=== PATIENT | male | born 1955 | race Caucasian/White ===

== ENCOUNTER 2020-07-12 14:16 | Inpatient (IN) | payer BC ==
[2020-07-12 15:07] LABS: #Basophils 0.1 10x3/uL (0.0-0.2); #Eosinphils 0.1 10x3/uL (0.0-0.5); #Monocytes 1.8 10x3/uL (0.0-1.1); #Neutrophils 11.7 10x3/uL (1.5-8.4); %Basophils 0.5 % (0.0-2.0); %Eosinophils 0.3 % (0.0-6.0); %Lymphocytes 12.3 % (18.0-47.0); %Monocytes 11.3 % (0.0-10.0); Hemoglobin 13.4 g/dL (13.5-17.5); Mean Corpuscular Volume 84.3 fl (81.2-95.1); Mean Platelet Volume 9.3 fl (7.4-10.4); Platelet Count 301 10x3/uL (150-450); RBC Distribution Width 15.7 % (11.5-14.5); Red Blood Cell (RBC) Count 4.97 10x6/uL (4.32-5.72); White Blood Cell (WBC) Count 15.6 10x3/uL (3.5-10.5)
[2020-07-12] MEDS ORDERED: Cefepime 2 GM VIAL ONE (15:12)
[2020-07-12 15:25] LABS: ALT (SGPT) 18 U/L (8-55); AST (SGOT) 18 U/L (5-34); Albumin 3.6 g/dL (3.4-4.8); Alkaline Phosphatase 94 U/L (40-110); Anion Gap 16 mmol/L (10-20); BUN (Urea Nitrogen) 10 mg/dL (8.4-25.7); Bilirubin, Total 0.3 mg/dL (0.2-1.2); CRP (Inflammatory) 20.15 mg/dL (= or < 0.5); Calc. Creatinine Clearance 0 mL/min (70-130); Calcium 9.1 mg/dL (7.8-10.44); Carbon Dioxide 26 mmol/L (23-31); Chloride 97 mmol/L (98-107); Globulin 3.6 g/dL (2.4-3.5); Glucose 129 mg/dL (80-115); Potassium 3.7 mmol/L (3.5-5.1); Protein, Total 7.2 g/dL (5.8-8.1); Sodium 135 mmol/L (136-145)
[2020-07-12] MEDS ORDERED: Morphine 4 MG/ML VIAL ONE (15:34)
[2020-07-12] MEDS ORDERED: Ondansetron PF 4 MG/2 ML Vial ONE (15:35)
[2020-07-12] MEDS ORDERED: Acetaminophen 650 MG Suppository PR PRN (16:35)
[2020-07-12] MEDS ORDERED: Acetaminophen 325 MG TAB PO PRN (16:35)
[2020-07-12] MEDS ORDERED: Ondansetron ODT 4 MG TAB PO PRN (16:35)
[2020-07-12] MEDS ORDERED: Ondansetron PF 4 MG/2 ML Vial IVP PRN (16:35)
[2020-07-12] MEDS ORDERED: Dextrose 50% Abboject 50 ML SYRINGE SLOW IVP PRN (16:37)
[2020-07-12] MEDS ORDERED: Insulin Regular 300 UNITS/3 ML VIAL SC PRN ×2 (16:37)
[2020-07-12] MEDS ORDERED: Dextrose 5% in Water 1,000 ML IV PRN (16:37)
[2020-07-12] MEDS ORDERED: Vancomycin 1 GM in Premix Bag 1 BAG IVPB SCH (16:45)
[2020-07-12 19:10] VITALS: BMI 28.8
[2020-07-12] MEDS ORDERED: HYDROcodone/Acetaminophen 5/325 mg Tablet PO PRN (22:19)
[2020-07-12] MEDS ORDERED: Famotidine 20 MG TAB PO SCH (23:00)
[2020-07-12] MEDS: Vancomycin HCl 1 GM in Sodium Chloride 0.9% 250 ML 250 ML IVPB SCH (23:05)
[2020-07-12] MEDS: HYDROcodone/Acetaminophen 10/325 mg Tablet PO PRN (23:06)
[2020-07-13] MEDS: Vancomycin HCl 750 MG in Sodium Chloride 0.9% 250 ML 250 ML IVPB SCH ×2 (00:20→11:01)
[2020-07-13] MEDS: Ipratropium Bromide 2.5 ml Neb NEB SCH ×4 (00:38→20:23)
[2020-07-13] MEDS: Cefepime 2 GM in Sodium Chloride 0.9% 100 ML IVPB SCH ×2 (03:49→14:43)
[2020-07-13 04:28] LABS: #Basophils 0.1 10x3/uL (0.0-0.2); #Eosinphils 0.2 10x3/uL (0.0-0.5); #Monocytes 1.4 10x3/uL (0.0-1.1); #Neutrophils 7.7 10x3/uL (1.5-8.4); %Basophils 0.6 % (0.0-2.0); %Eosinophils 1.8 % (0.0-6.0); %Lymphocytes 17.1 % (18.0-47.0); %Monocytes 12.5 % (0.0-10.0); %Neutrophils 67.7 % (40.0-75.0); Hemoglobin 13.2 g/dL (13.5-17.5); Mean Corpuscular HGB CONC 30.8 g/dL (32.0-36.0); Mean Corpuscular Hemoglobin 26.8 pg (27.0-33.0); Mean Platelet Volume 9.3 fl (7.4-10.4); Platelet Count 290 10x3/uL (150-450); RBC Distribution Width 15.7 % (11.5-14.5); Red Blood Cell (RBC) Count 4.93 10x6/uL (4.32-5.72); White Blood Cell (WBC) Count 11.4 10x3/uL (3.5-10.5)
[2020-07-13 04:43] LABS: Anion Gap 14 mmol/L (10-20); BUN (Urea Nitrogen) 8 mg/dL (8.4-25.7); Calc. Creatinine Clearance 130 mL/min (70-130); Carbon Dioxide 30 mmol/L (23-31); Chloride 100 mmol/L (98-107); Glucose 90 mg/dL (80-115); Potassium 4.1 mmol/L (3.5-5.1); Sodium 140 mmol/L (136-145)
[2020-07-13] MEDS: HYDROcodone/Acetaminophen 10/325 mg Tablet PO PRN (06:31)
[2020-07-13] MEDS: Losartan Potassium 50 MG TAB PO SCH (09:01)
[2020-07-13] MEDS: Multivit, Therapeutic 1 TAB PO SCH (09:02)
[2020-07-13] MEDS: metFORMIN 850 MG TAB PO SCH ×2 (09:02→18:16)
[2020-07-13] MEDS: Empagliflozin 10 MG TAB PO SCH (09:02)
[2020-07-13] MEDS: Vancomycin HCl 1 GM in Sodium Chloride 0.9% 250 ML 250 ML IVPB SCH (09:03)
[2020-07-13] MEDS: Ferrous Sulfate 325 MG TAB PO SCH (09:18)
[2020-07-13 10:30] LABS: SARS-CoV-2 NAA Rapid Test Not Detected (NotDetected)
[2020-07-13] MEDS: Mometasone/Formoterol 60 PUFF AER INH SCH (11:24)
[2020-07-13] MEDS: HYDROcodone/Acetaminophen 5/325 mg Tablet PO PRN ×2 (11:48→18:15)
[2020-07-13] MEDS: clonazePAM 1 MG TAB PO SCH (21:42)
[2020-07-13] MEDS: Gabapentin 300 MG CAP PO SCH (21:42)
[2020-07-13] MEDS: Atorvastatin Calcium 20 MG TAB PO SCH (21:42)
[2020-07-13] MEDS: Famotidine 20 MG TAB PO SCH (21:42)
[2020-07-13] MEDS: Vancomycin 1.5 GRAM/300 ML BAG 1.5 GM in Premix Bag 1 BAG IVPB SCH (21:48)
[2020-07-14] MEDS: Cefepime 2 GM in Sodium Chloride 0.9% 100 ML IVPB SCH ×2 (03:08→15:49)
[2020-07-14] MEDS: Ipratropium Bromide 2.5 ml Neb NEB SCH ×4 (03:26→19:30)
[2020-07-14] MEDS: Vancomycin 1.5 GRAM/300 ML BAG 1.5 GM in Premix Bag 1 BAG IVPB SCH ×3 (05:34→22:09)
[2020-07-14 05:59] LABS: #Basophils 0.1 10x3/uL (0.0-0.2); #Eosinphils 0.3 10x3/uL (0.0-0.5); #Monocytes 1.1 10x3/uL (0.0-1.1); #Neutrophils 5.1 10x3/uL (1.5-8.4); %Basophils 1.1 % (0.0-2.0); %Eosinophils 3.8 % (0.0-6.0); %Lymphocytes 21.7 % (18.0-47.0); %Monocytes 12.5 % (0.0-10.0); %Neutrophils 60.2 % (40.0-75.0); Hemoglobin 12.3 g/dL (13.5-17.5); Mean Corpuscular HGB CONC 31.5 g/dL (32.0-36.0); Mean Corpuscular Hemoglobin 26.9 pg (27.0-33.0); Mean Corpuscular Volume 85.2 fl (81.2-95.1); Mean Platelet Volume 9.1 fl (7.4-10.4); Platelet Count 276 10x3/uL (150-450); RBC Distribution Width 15.8 % (11.5-14.5); Red Blood Cell (RBC) Count 4.58 10x6/uL (4.32-5.72); White Blood Cell (WBC) Count 8.4 10x3/uL (3.5-10.5)
[2020-07-14 06:04] LABS: Anion Gap 12 mmol/L (10-20); BUN (Urea Nitrogen) 8 mg/dL (8.4-25.7); CRP (Inflammatory) 10.49 mg/dL (= or < 0.5); Calc. Creatinine Clearance 135 mL/min (70-130); Calcium 8.5 mg/dL (7.8-10.44); Carbon Dioxide 28 mmol/L (23-31); Chloride 103 mmol/L (98-107); Glucose 106 mg/dL (80-115); Potassium 3.5 mmol/L (3.5-5.1); Sodium 139 mmol/L (136-145)
[2020-07-14] MEDS: Mometasone/Formoterol 60 PUFF AER INH SCH (07:35)
[2020-07-14] MEDS: Empagliflozin 10 MG TAB PO SCH (08:49)
[2020-07-14] MEDS: Ferrous Sulfate 325 MG TAB PO SCH (08:50)
[2020-07-14] MEDS: Losartan Potassium 50 MG TAB PO SCH (08:50)
[2020-07-14] MEDS: metFORMIN 850 MG TAB PO SCH ×2 (08:50→17:58)
[2020-07-14] MEDS: Multivit, Therapeutic 1 TAB PO SCH (08:50)
[2020-07-14 20:42] LABS: Vancomycin, Trough 26.9 ug/mL
[2020-07-14] MEDS: clonazePAM 1 MG TAB PO SCH (22:08)
[2020-07-14] MEDS: Famotidine 20 MG TAB PO SCH (22:08)
[2020-07-14] MEDS: Atorvastatin Calcium 20 MG TAB PO SCH (22:09)
[2020-07-14] MEDS: Gabapentin 300 MG CAP PO SCH (22:11)
[2020-07-14] MEDS: HYDROcodone/Acetaminophen 5/325 mg Tablet PO PRN (22:25)
[2020-07-15] MEDS: Cefepime 2 GM in Sodium Chloride 0.9% 100 ML IVPB SCH ×2 (02:43→16:45)
[2020-07-15] MEDS: Ipratropium Bromide 2.5 ml Neb NEB SCH ×3 (03:18→13:44)
[2020-07-15] MEDS: Vancomycin 1.5 GRAM/300 ML BAG 1.5 GM in Premix Bag 1 BAG IVPB SCH ×2 (05:09→14:07)
[2020-07-15] MEDS: Mometasone/Formoterol 60 PUFF AER INH SCH (07:09)
[2020-07-15] MEDS: Multivit, Therapeutic 1 TAB PO SCH (08:52)
[2020-07-15] MEDS: Ferrous Sulfate 325 MG TAB PO SCH (08:52)
[2020-07-15] MEDS: Empagliflozin 10 MG TAB PO SCH (08:52)
[2020-07-15] MEDS: Losartan Potassium 50 MG TAB PO SCH (08:52)
[2020-07-15] MEDS: metFORMIN 850 MG TAB PO SCH ×2 (08:52→17:49)
[2020-07-15] MEDS: HYDROcodone/Acetaminophen 5/325 mg Tablet PO PRN ×2 (18:40→22:42)
[2020-07-15] MEDS: Atorvastatin Calcium 20 MG TAB PO SCH (21:39)
[2020-07-15] MEDS: Gabapentin 300 MG CAP PO SCH (21:39)
[2020-07-15] MEDS: clonazePAM 1 MG TAB PO SCH (21:40)
[2020-07-15] MEDS: Famotidine 20 MG TAB PO SCH (21:40)
[2020-07-16 01:28] LABS: Vancomycin, Random 25.6 ug/mL (See Comment)
[2020-07-16] MEDS ORDERED: Vancomycin HCl 1 GM in Sodium Chloride 0.9% 250 ML 250 ML IVPB SCH ×2 (02:00→10:00)
[2020-07-16] MEDS: Ipratropium Bromide 2.5 ml Neb NEB SCH ×3 (02:18→14:40)
[2020-07-16] MEDS: Cefepime 2 GM in Sodium Chloride 0.9% 100 ML IVPB SCH ×2 (03:41→16:15)
[2020-07-16 06:19] LABS: PTT 27.4 sec (22.0-33.0); Prothrombin Time 11.2 sec (9.5-12.1)
[2020-07-16] MEDS: Mometasone/Formoterol 60 PUFF AER INH SCH (07:08)
[2020-07-16] MEDS ORDERED: Lidocaine 1% PF 5 ML VIAL ONE (08:44)
[2020-07-16] MEDS ORDERED: Sodium Bicarbonate 2.5 MEQ/5 ML VIAL ONE (08:45)
[2020-07-16] MEDS ORDERED: Enoxaparin Sodium 40 MG/0.4 ML SYRINGE SC SCH (09:00)
[2020-07-16] MEDS: Empagliflozin 10 MG TAB PO SCH (11:28)
[2020-07-16] MEDS: Multivit, Therapeutic 1 TAB PO SCH (11:28)
[2020-07-16] MEDS: Ferrous Sulfate 325 MG TAB PO SCH (11:29)
[2020-07-16] MEDS: Losartan Potassium 50 MG TAB PO SCH (11:29)
[2020-07-16] MEDS: metFORMIN 850 MG TAB PO SCH (11:29)
[2020-07-16] MEDS: HYDROcodone/Acetaminophen 5/325 mg Tablet PO PRN (11:29)
[2020-07-16] MEDS ORDERED: DAPTOmycin 800 MG in Sodium Chloride 0.9% 16 ML SLOW IVP SCH (15:30)
[2020-07-16 15:33] VITALS: BP 146/79; TEMP 98.9
[2020-07-23 08:28] LABS: Ref Lab Test Ordered AEROBIC SUSCEPT; Reference Lab Name LABCORP
== END 2020-07-16 17:12 | disposition home or self-care (01) | DRG 854 ==
LOC: CSHERS 14:16 → CSHTELE 18:15
PROVIDERS: ADMIT Internal Medicine; ATTEND Internal Medicine
PROC: 0MC Bursae and Ligaments, Extirpation (ICD-10-PCS; principal; 2020-07-13)
PROC: 02HV33Z Insertion of Infusion Device into Superior Vena Cava, Percutaneous Approach (ICD-10-PCS; 2020-07-15)
PROC: B548ZZA Ultrasonography of Superior Vena Cava, Guidance (ICD-10-PCS; 2020-07-15)
DX: A41.9 Sepsis, unspecified organism (principal); M86.18 Other acute osteomyelitis, other site; Z20.822 Contact with and (suspected) exposure to COVID-19; I10 Essential (primary) hypertension; E11.69 Type 2 diabetes mellitus with other specified complication; E78.5 Hyperlipidemia, unspecified; M71.122 Other infective bursitis, left elbow; S50.352A Superficial foreign body of left elbow, initial encounter; B95.61 Methicillin susceptible Staphylococcus aureus infection as the cause of diseases classified elsewhere; E66.9 Obesity, unspecified; Z68.28 Body mass index [BMI] 28.0-28.9, adult; Z90.3 Acquired absence of stomach [part of]; Z79.84 Long term (current) use of oral hypoglycemic drugs; Z90.89 Acquired absence of other organs; Z90.49 Acquired absence of other specified parts of digestive tract; Z79.899 Other long term (current) drug therapy
CPT/HCPCS: 36415; 36416; 36568; 78315; 80048; 80053; 80202; 82550; 82565; 83605; 84520; 85025; 85610; 85652; 85730; 86140; 87040; 87070; 87077; 87205; 87635; 94640; 94664; 94760; 96365; 96367; 96375; A9503; J0692; J0878; J1650; J2270; J2405; J3370; J3490; J7050; Q0162; U0002; U0003; U0005

== ENCOUNTER 2021-11-09 20:28 | Inpatient (IN) | payer BC ==
[2021-11-09 21:48] LABS: Hemoglobin 13.1 g/dL (13.5-17.5); Mean Corpuscular HGB CONC 32.8 g/dL (32.0-36.0); Mean Corpuscular Hemoglobin 26.4 pg (27.0-33.0); Mean Corpuscular Volume 80.5 fl (81.2-95.1); Platelet Count 296 10x3/uL (150-450); RBC Distribution Width 18.2 % (11.5-14.5); Red Blood Cell (RBC) Count 4.97 10x6/uL (4.32-5.72); White Blood Cell (WBC) Count 45.3 10x3/uL (3.5-10.5)
[2021-11-09 21:49] LABS: MDiff Complete? YES; Platelet Morphology Comment Appears Adequate
[2021-11-09 21:53] LABS: Reflex for Review?? YES
[2021-11-09 22:02] LABS: ALT (SGPT) 21 U/L (8-55); AST (SGOT) 13 U/L (5-34); Albumin 3.4 g/dL (3.4-4.8); Alkaline Phosphatase 77 U/L (40-110); Anion Gap 16 mmol/L (10-20); BUN (Urea Nitrogen) 18 mg/dL (8.4-25.7); Bilirubin, Total 0.7 mg/dL (0.2-1.2); Calc. Creatinine Clearance 0 mL/min (70-130); Calcium 8.8 mg/dL (7.8-10.44); Carbon Dioxide 25 mmol/L (23-31); Chloride 99 mmol/L (98-107); Estimated GFR 69; Globulin 3.1 g/dL (2.4-3.5); Glucose 211 mg/dL (80-115); Protein, Total 6.5 g/dL (5.8-8.1); Sodium 136 mmol/L (136-145)
[2021-11-09 22:16] LABS: Bilirubin Neg (Negative); Blood, Urine 150 (Negative); Glucose, Urine (Dipstick) >=1000 mg/dL (Negative); Ketone, Urine Negative (Negative); Leukocyte 500 (Negative); Nitrite Positive (Negative); Protein, Urine (Dipstick) 30 mg/dl (Neg-Trace); Specific Gravity, Urine 1.015 (1.002-1.036); Urobilinogen Normal mg/dL (Less than 2)
[2021-11-09 22:17] LABS: Clarity Cloudy (Clear)
[2021-11-09 22:23] LABS: Bacteria/HPF 3+ HPF (None Seen); Squamous Epithelial 0-3 HPF (0-3); WBC/HPF Greater Than 50 HPF (0-3)
[2021-11-09] MEDS ORDERED: cefTRIAXone\\ROCEPHIN 2 GM VIAL ONE (22:24)
[2021-11-09 23:16] LABS: Band 5 % (5-11); Lymphocytes 8 % (21-51); Monocytes 5 % (0-10); Neutrophil 82 % (42-75)
[2021-11-09] MEDS ORDERED: Acetaminophen 325 MG TAB PO PRN (23:47)
[2021-11-09] MEDS ORDERED: Guaifenesin DM 100-10/5 ML UDCUP PO PRN (23:47)
[2021-11-09] MEDS ORDERED: Ondansetron PF 4 MG/2 ML Vial IVP PRN (23:47)
[2021-11-09] MEDS ORDERED: Calcium Carbonate 500 MG ChewTAB PO PRN (23:47)
[2021-11-09] MEDS ORDERED: HYDROcodone/Acetaminophen 5/325 mg Tablet PO PRN (23:47)
[2021-11-09] MEDS ORDERED: Senokot S 8.6-50 MG TAB PO PRN (23:47)
[2021-11-10] MEDS ORDERED: Dextrose 50% Abboject 50 ML SYRINGE SLOW IVP PRN (00:23)
[2021-11-10] MEDS ORDERED: HumaLOG 300 UNITS/3 ML VIAL SC PRN (00:23)
[2021-11-10] MEDS ORDERED: Dextrose 5% in Water 1,000 ML IV PRN (00:23)
[2021-11-10] MEDS ORDERED: Lactated Ringer's 1,000 ML IV SCH (00:30)
[2021-11-10] MEDS ORDERED: Vancomycin 1.5 GM in Premix Bag 1 BAG IVPB SCH (00:30)
[2021-11-10] MEDS ORDERED: Vancomycin HCl 500 MG VIAL ONE (01:27)
[2021-11-10] MEDS ORDERED: Vancomycin 1.5 GRAM/300 ML BAG 1.5 GM in Premix Bag 1 BAG IVPB SCH (01:45)
[2021-11-10 02:36] LABS: SARS-CoV-2 NAA Rapid Test Not Detected (NotDetected)
[2021-11-10] MEDS: Cefepime 2 GM in Sodium Chloride 0.9% 100 ML IVPB SCH ×2 (04:10→13:50)
[2021-11-10 04:16] VITALS: BMI 28.5
[2021-11-10] MEDS ORDERED: Famotidine 20 MG TAB PO SCH (04:45)
[2021-11-10 05:21] LABS: SARS-CoV-2 NAA Rapid Test Not Detected (NotDetected)
[2021-11-10] MEDS: Budesonide 0.5 MG/2 ML NEB NEB SCH ×2 (06:30→06:45)
[2021-11-10] MEDS: Ipratropium Bromide 2.5 ml Neb NEB SCH ×3 (06:30→19:05)
[2021-11-10 06:37] LABS: #Basophils 0.1 10x3/uL (0.0-0.2); #Eosinphils 0.2 10x3/uL (0.0-0.5); #Monocytes 1.7 10x3/uL (0.0-1.1); #Neutrophils 28.2 10x3/uL (1.5-8.4); %Basophils 0.2 % (0.0-2.0); %Eosinophils 0.7 % (0.0-6.0); %Lymphocytes 5.4 % (18.0-47.0); %Monocytes 5.1 % (0.0-10.0); %Neutrophils 87.6 % (40.0-75.0); ALT (SGPT) 18 U/L (8-55); AST (SGOT) 12 U/L (5-34); Albumin 3.2 g/dL (3.4-4.8); Alkaline Phosphatase 71 U/L (40-110); Anion Gap 14 mmol/L (10-20); BUN (Urea Nitrogen) 13 mg/dL (8.4-25.7); Bilirubin, Total 0.6 mg/dL (0.2-1.2); Calc. Creatinine Clearance 109 mL/min (70-130); Calcium 8.2 mg/dL (7.8-10.44); Carbon Dioxide 25 mmol/L (23-31); Chloride 103 mmol/L (98-107); Estimated GFR 89; Globulin 2.9 g/dL (2.4-3.5); Glucose 148 mg/dL (80-115); Mean Corpuscular HGB CONC 32.5 g/dL (32.0-36.0); Mean Corpuscular Hemoglobin 26.3 pg (27.0-33.0); Mean Platelet Volume 8.8 fl (7.4-10.4); Platelet Count 262 10x3/uL (150-450); Protein, Total 6.1 g/dL (5.8-8.1); RBC Distribution Width 18.4 % (11.5-14.5); Red Blood Cell (RBC) Count 4.94 10x6/uL (4.32-5.72); Sodium 138 mmol/L (136-145); White Blood Cell (WBC) Count 32.2 10x3/uL (3.5-10.5)
[2021-11-10 07:13] LABS: MDiff Complete? YES
[2021-11-10] MEDS: Ferrous Sulfate 325 MG TAB PO SCH (07:30)
[2021-11-10] MEDS: Multivit, Therapeutic 1 TAB PO SCH (08:29)
[2021-11-10] MEDS: Enoxaparin Sodium 40 MG/0.4 ML SYRINGE SC SCH (08:29)
[2021-11-10 10:35] LABS: Legionella Urinary Ag Negative (Negative)
[2021-11-10 10:36] LABS: Strep pneumo Urine Ag NEGATIVE (NEGATIVE)
[2021-11-10] MEDS: metroNIDAZOLE 500 MG in Premix Bag 1 BAG IVPB SCH ×2 (13:57→21:43)
[2021-11-10 14:05] LABS: Hemoglobin A1c 7.4 % (4.0-6.0)
[2021-11-10] MEDS ORDERED: BUDESONIDE IH SCH (21:00)
[2021-11-10] MEDS ORDERED: [UNRECOGNIZED DRUG - OTHER] IH SCH (21:00)
[2021-11-10] MEDS ORDERED: FORMOTEROL FUMARATE IH SCH (21:00)
[2021-11-10] MEDS: Saccharomyces boulardii 250 MG CAP PO SCH (21:35)
[2021-11-10] MEDS: clonazePAM 1 MG TAB PO SCH (21:36)
[2021-11-10] MEDS: Famotidine 20 MG TAB PO SCH (21:37)
[2021-11-10] MEDS: Atorvastatin Calcium 20 MG TAB PO SCH (21:37)
[2021-11-10] MEDS: Gabapentin 400 MG CAP PO SCH (21:38)
[2021-11-10] MEDS: Pantoprazole 40 MG VIAL IVP SCH (21:39)
[2021-11-11] MEDS: Ipratropium Bromide 2.5 ml Neb NEB SCH ×4 (01:30→19:00)
[2021-11-11] MEDS ORDERED: Vancomycin HCl 1 GM in Sodium Chloride 0.9% 250 ML 250 ML IVPB SCH (01:45)
[2021-11-11] MEDS: Cefepime 2 GM in Sodium Chloride 0.9% 100 ML IVPB SCH ×3 (03:18→15:13)
[2021-11-11 04:27] LABS: Hemoglobin 12.6 g/dL (13.5-17.5); Mean Corpuscular HGB CONC 31.7 g/dL (32.0-36.0); Mean Corpuscular Hemoglobin 26.1 pg (27.0-33.0); Mean Corpuscular Volume 82.2 fl (81.2-95.1); Platelet Count 250 10x3/uL (150-450); RBC Distribution Width 17.9 % (11.5-14.5); Red Blood Cell (RBC) Count 4.83 10x6/uL (4.32-5.72); White Blood Cell (WBC) Count 20.6 10x3/uL (3.5-10.5)
[2021-11-11 04:29] LABS: ALT (SGPT) 14 U/L (8-55); AST (SGOT) 13 U/L (5-34); Albumin 3.1 g/dL (3.4-4.8); Alkaline Phosphatase 72 U/L (40-110); Anion Gap 17 mmol/L (10-20); BUN (Urea Nitrogen) 7 mg/dL (8.4-25.7); Bilirubin, Total 0.7 mg/dL (0.2-1.2); Calc. Creatinine Clearance 126 mL/min (70-130); Calcium 8.7 mg/dL (7.8-10.44); Carbon Dioxide 23 mmol/L (23-31); Chloride 103 mmol/L (98-107); Estimated GFR 97; Glucose 107 mg/dL (80-115); Magnesium 1.3 mg/dL (1.6-2.6); Phosphorus 3.4 mg/dL (2.3-4.7); Potassium 3.6 mmol/L (3.5-5.1); Protein, Total 6.1 g/dL (5.8-8.1); Sodium 139 mmol/L (136-145)
[2021-11-11 04:42] LABS: CRP (Inflammatory) 12.92 mg/dL (= or < 0.5)
[2021-11-11] MEDS: metroNIDAZOLE 500 MG in Premix Bag 1 BAG IVPB SCH ×3 (05:07→21:06)
[2021-11-11 05:44] LABS: Band 3 % (5-11); Eosinophils 2 % (0-10); Lymphocytes 11 % (21-51); Monocytes 6 % (0-10); Neutrophil 78 % (42-75)
[2021-11-11 05:46] LABS: MDiff Complete? YES; Platelet Morphology Comment Appears Adequate
[2021-11-11] MEDS: Budesonide 0.5 MG/2 ML NEB NEB SCH ×2 (07:00→19:05)
[2021-11-11] MEDS: Ferrous Sulfate 325 MG TAB PO SCH (07:35)
[2021-11-11] MEDS ORDERED: Electrolyte Replacement Protocol 1 EACH FS SCH (08:15)
[2021-11-11] MEDS ORDERED: Magnesium Sulfate 4 GM in Sodium Chloride 0.9% 250 ML 250 ML IVPB SCH (08:15)
[2021-11-11] MEDS: Magnesium 2 GM/50 ML(in water) 2 GM in Premix Bag 1 BAG IVPB SCH ×2 (08:33→10:16)
[2021-11-11] MEDS: Pantoprazole 40 MG VIAL IVP SCH (08:48)
[2021-11-11] MEDS: Multivit, Therapeutic 1 TAB PO SCH (08:48)
[2021-11-11] MEDS: Enoxaparin Sodium 40 MG/0.4 ML SYRINGE SC SCH (08:48)
[2021-11-11] MEDS ORDERED: Nitroglycerin 0.4 MG TAB (25 Tab Bottle) SL PRN (13:46)
[2021-11-11] MEDS: Potassium Chloride 20 MEQ TAB PO SCH (17:14)
[2021-11-11] MEDS: Gabapentin 400 MG CAP PO SCH (20:40)
[2021-11-11] MEDS: Famotidine 20 MG TAB PO SCH (20:41)
[2021-11-11] MEDS: clonazePAM 1 MG TAB PO SCH (20:41)
[2021-11-11] MEDS: Saccharomyces boulardii 250 MG CAP PO SCH (20:41)
[2021-11-11] MEDS: Atorvastatin Calcium 20 MG TAB PO SCH (20:42)
[2021-11-12] MEDS: Ipratropium Bromide 2.5 ml Neb NEB SCH ×4 (01:10→20:40)
[2021-11-12 05:23] LABS: ALT (SGPT) 12 U/L (8-55); AST (SGOT) 9 U/L (5-34); Albumin 2.9 g/dL (3.4-4.8); Alkaline Phosphatase 66 U/L (40-110); Anion Gap 13 mmol/L (10-20); BUN (Urea Nitrogen) 9 mg/dL (8.4-25.7); Bilirubin, Total 0.5 mg/dL (0.2-1.2); Calc. Creatinine Clearance 120 mL/min (70-130); Calcium 8.4 mg/dL (7.8-10.44); Carbon Dioxide 28 mmol/L (23-31); Chloride 102 mmol/L (98-107); Estimated GFR 96; Globulin 2.9 g/dL (2.4-3.5); Glucose 158 mg/dL (80-115); Magnesium 1.8 mg/dL (1.6-2.6); Potassium 3.6 mmol/L (3.5-5.1); Protein, Total 5.8 g/dL (5.8-8.1); Sodium 139 mmol/L (136-145)
[2021-11-12] MEDS: metroNIDAZOLE 500 MG in Premix Bag 1 BAG IVPB SCH (05:34)
[2021-11-12 05:38] LABS: #Eosinphils 0.4 10x3/uL (0.0-0.5); #Monocytes 1.3 10x3/uL (0.0-1.1); #Neutrophils 8.4 10x3/uL (1.5-8.4); %Basophils 0.3 % (0.0-2.0); %Lymphocytes 13.3 % (18.0-47.0); %Monocytes 10.8 % (0.0-10.0); %Neutrophils 71.7 % (40.0-75.0); Hemoglobin 11.9 g/dL (13.5-17.5); Mean Corpuscular HGB CONC 32.2 g/dL (32.0-36.0); Mean Corpuscular Hemoglobin 26.1 pg (27.0-33.0); Mean Corpuscular Volume 80.9 fl (81.2-95.1); Platelet Count 272 10x3/uL (150-450); RBC Distribution Width 17.7 % (11.5-14.5); Red Blood Cell (RBC) Count 4.56 10x6/uL (4.32-5.72); White Blood Cell (WBC) Count 11.7 10x3/uL (3.5-10.5)
[2021-11-12] MEDS ORDERED: Magnesium 2 GM/50 ML(in water) 2 GM in Premix Bag 1 BAG IVPB SCH (06:00)
[2021-11-12] MEDS: Budesonide 0.5 MG/2 ML NEB NEB SCH ×2 (07:10→20:40)
[2021-11-12] MEDS: Ferrous Sulfate 325 MG TAB PO SCH (08:58)
[2021-11-12] MEDS: Enoxaparin Sodium 40 MG/0.4 ML SYRINGE SC SCH (08:59)
[2021-11-12] MEDS: Potassium Chloride 20 MEQ TAB PO SCH (08:59)
[2021-11-12] MEDS: Multivit, Therapeutic 1 TAB PO SCH (08:59)
[2021-11-12] MEDS ORDERED: Meropenem 1 GM in Sodium Chloride 0.9% 100 ML IVPB SCH ×2 (10:30→11:00)
[2021-11-12] MEDS ORDERED: Sodium Bicarbonate 2.5 MEQ/5 ML VIAL ONE (12:32)
[2021-11-12] MEDS ORDERED: Lidocaine 1% PF 5 ML VIAL ONE (12:32)
[2021-11-12] MEDS: Meropenem 1 GM in Sodium Chloride 0.9% 100 ML IVPB SCH (18:46)
[2021-11-12] MEDS: Atorvastatin Calcium 20 MG TAB PO SCH (22:24)
[2021-11-12] MEDS: Famotidine 20 MG TAB PO SCH (22:25)
[2021-11-12] MEDS: Gabapentin 400 MG CAP PO SCH (22:25)
[2021-11-12] MEDS: clonazePAM 1 MG TAB PO SCH (22:26)
[2021-11-12] MEDS: Saccharomyces boulardii 250 MG CAP PO SCH (22:26)
[2021-11-13] MEDS: Ipratropium Bromide 2.5 ml Neb NEB SCH ×3 (01:00→13:41)
[2021-11-13] MEDS: Meropenem 1 GM in Sodium Chloride 0.9% 100 ML IVPB SCH ×2 (02:47→10:58)
[2021-11-13] MEDS: Budesonide 0.5 MG/2 ML NEB NEB SCH (06:38)
[2021-11-13] MEDS ORDERED: Alogliptin 6.25 MG TAB PO SCH (09:00)
[2021-11-13] MEDS: Ferrous Sulfate 325 MG TAB PO SCH (09:24)
[2021-11-13] MEDS: Multivit, Therapeutic 1 TAB PO SCH (09:24)
[2021-11-13] MEDS: Enoxaparin Sodium 40 MG/0.4 ML SYRINGE SC SCH (09:24)
[2021-11-13] MEDS ORDERED: Losartan Potassium 50 MG TAB PO SCH (10:15)
[2021-11-13 10:56] LABS: Anion Gap 9 mmol/L (10-20); BUN (Urea Nitrogen) 6 mg/dL (8.4-25.7); Calc. Creatinine Clearance 123 mL/min (70-130); Calcium 8.5 mg/dL (7.8-10.44); Carbon Dioxide 31 mmol/L (23-31); Chloride 100 mmol/L (98-107); Estimated GFR 97; Glucose 238 mg/dL (80-115); Magnesium 1.5 mg/dL (1.6-2.6); Potassium 3.9 mmol/L (3.5-5.1); Sodium 136 mmol/L (136-145)
[2021-11-13] MEDS ORDERED: Magnesium 2 GM/50 ML(in water) 2 GM in Premix Bag 1 BAG IVPB SCH (11:30)
[2021-11-13 11:54] LABS: Hemoglobin 12.3 g/dL (13.5-17.5); Mean Corpuscular HGB CONC 31.1 g/dL (32.0-36.0); Mean Corpuscular Hemoglobin 25.9 pg (27.0-33.0); Mean Corpuscular Volume 83.2 fl (81.2-95.1); Mean Platelet Volume 9.3 fl (7.4-10.4); Platelet Count 314 10x3/uL (150-450); RBC Distribution Width 17.6 % (11.5-14.5); Red Blood Cell (RBC) Count 4.75 10x6/uL (4.32-5.72); White Blood Cell (WBC) Count 8.2 10x3/uL (3.5-10.5)
[2021-11-13 12:51] VITALS: BP 137/80; TEMP 98.3
[2021-11-13] MEDS ORDERED: Nateglinide 120 MG TAB PO SCH (17:00)
[2021-11-14] MEDS ORDERED: Losartan Potassium 50 MG TAB PO SCH (09:00)
== END 2021-11-13 14:49 | disposition home or self-care (01) | DRG 871 ==
LOC: CSHERS 20:28 → CSHICU 23:47 → UNDOADMIN 11-10 03:40 → CSHTELE 11-11 14:43
PROVIDERS: ADMIT Student in an Organized Health Care Education/Training Program; ATTEND Internal Medicine
PROC: 3E03329 Introduction of Other Anti-infective into Peripheral Vein, Percutaneous Approach (ICD-10-PCS; principal; 2021-11-09)
PROC: 02HV33Z Insertion of Infusion Device into Superior Vena Cava, Percutaneous Approach (ICD-10-PCS; 2021-11-12)
PROC: B548ZZA Ultrasonography of Superior Vena Cava, Guidance (ICD-10-PCS; 2021-11-12)
DX: A41.51 Sepsis due to Escherichia coli [E. coli] (principal); J12.9 Viral pneumonia, unspecified; J96.01 Acute respiratory failure with hypoxia; J69.0 Pneumonitis due to inhalation of food and vomit; N39.0 Urinary tract infection, site not specified; J98.11 Atelectasis; R65.20 Severe sepsis without septic shock; Z20.822 Contact with and (suspected) exposure to COVID-19; J45.30 Mild persistent asthma, uncomplicated; I10 Essential (primary) hypertension; R53.81 Other malaise; G89.4 Chronic pain syndrome; D53.9 Nutritional anemia, unspecified; E83.42 Hypomagnesemia; E78.5 Hyperlipidemia, unspecified; E11.42 Type 2 diabetes mellitus with diabetic polyneuropathy; E11.65 Type 2 diabetes mellitus with hyperglycemia; Z79.899 Other long term (current) drug therapy; Z79.84 Long term (current) use of oral hypoglycemic drugs; Z87.440 Personal history of urinary (tract) infections; Z90.49 Acquired absence of other specified parts of digestive tract; Z90.89 Acquired absence of other organs; Z98.84 Bariatric surgery status
CPT/HCPCS: 36415; 36416; 36569; 71045; 71275; 74177; 80048; 80053; 81003; 81015; 83036; 83605; 83735; 84100; 84145; 85025; 85027; 86140; 87040; 87077; 87081; 87086; 87186; 87449; 87899; 93005; 93010; 93306; 94640; 94760; 96361; 96374; 96375; C1751; C9113; J0692; J0696; J1650; J2185; J3370; J3475; J3490; J7050; J7120; J7620; J7626; U0002

== ENCOUNTER 2022-10-05 13:57 | Inpatient (IN) | payer BC, MEDICARE ==
[~2022-10-05 13:57] MED LIST: Iopamidol 370 76% 100 ML VIAL ONE
[2022-10-05 15:28] LABS: Bilirubin Neg (Negative); Blood, Urine 150 (Negative); Clarity Cloudy (Clear); Glucose, Urine (Dipstick) >=1000 mg/dL (Negative); Ketone, Urine 5 mg/dL (Negative); Leukocyte 500 (Negative); Nitrite Negative (Negative); Protein, Urine (Dipstick) 100 mg/dl (Neg-Trace); Urobilinogen Normal mg/dL (Less than 2)
[2022-10-05 15:35] LABS: Hematocrit 41.2 % (38.8-50.0); Hemoglobin 13.5 g/dL (13.5-17.5); Mean Corpuscular HGB CONC 32.8 g/dL (32.0-36.0); Mean Corpuscular Hemoglobin 27.1 pg (27.0-33.0); Mean Corpuscular Volume 82.6 fl (81.2-95.1); Mean Platelet Volume 9.2 fl (7.4-10.4); Platelet Count 343 10x3/uL (150-450); RBC Distribution Width 15.5 % (11.5-14.5); Red Blood Cell (RBC) Count 4.99 10x6/uL (4.32-5.72); White Blood Cell (WBC) Count 29.2 10x3/uL (3.5-10.5)
[2022-10-05 15:41] LABS: ALT (SGPT) 15 U/L (8-55); AST (SGOT) 19 U/L (5-34); Albumin 3.5 g/dL (3.4-4.8); Alkaline Phosphatase 92 U/L (40-110); Anion Gap 18 mmol/L (10-20); BUN (Urea Nitrogen) 25 mg/dL (8.4-25.7); Bilirubin, Total 0.3 mg/dL (0.2-1.2); Calc. Creatinine Clearance 0 mL/min (70-130); Calcium 8.9 mg/dL (7.8-10.44); Carbon Dioxide 26 mmol/L (23-31); Chloride 90 mmol/L (98-107); Estimated GFR 41; Glucose 182 mg/dL (80-115); Protein, Total 7.5 g/dL (5.8-8.1); Sodium 130 mmol/L (136-145)
[2022-10-05 15:50] LABS: CAUTI Indications for Culture Pelvic or flank pain; WBC/HPF Greater than 50 HPF (0-3)
[2022-10-05 15:51] LABS: Bacteria/HPF 3+ HPF (None Seen); Squamous Epithelial 0-3 HPF (0-3); Transitional Epithelial 0-3 HPF (None Seen)
[2022-10-05 15:52] LABS: Urine Culture Reflex Yes Yes
[2022-10-05 16:17] LABS: Band 17 % (5-11)
[2022-10-05 16:21] LABS: Lymphocytes 4 % (21-51); Monocytes 16 % (0-10); Neutrophil 62 % (42-75)
[2022-10-05 16:22] LABS: Platelet Adequacy Comment Appears Adequate
[2022-10-05 16:23] LABS: MDiff Complete? YES; RBC Morph Comment Within Normal Limits
[2022-10-05] MEDS ORDERED: Ondansetron PF 4 MG/2 ML Vial ONE (16:52)
[2022-10-05] MEDS ORDERED: Morphine 4 MG/ML VIAL ONE ×2 (16:52→20:43)
[2022-10-05] MEDS ORDERED: Piperacillin/Tazobactam 4.5 GM VIAL ONE (16:52)
[2022-10-05 18:51] LABS: Magnesium 1.7 mg/dL (1.6-2.6)
[2022-10-05] MEDS ORDERED: HumaLOG 300 UNITS/3 ML VIAL SC PRN (19:24)
[2022-10-05] MEDS ORDERED: Dextrose 5% in Water 1,000 ML IV PRN (19:24)
[2022-10-05] MEDS ORDERED: Dextrose 50% Abboject 50 ML SYRINGE SLOW IVP PRN (19:24)
[2022-10-05] MEDS ORDERED: Acetaminophen 325 MG TAB PO PRN (19:24)
[2022-10-05] MEDS ORDERED: Senokot S 8.6-50 MG TAB PO PRN (19:24)
[2022-10-05] MEDS ORDERED: HYDROcodone/Acetaminophen 5/325 mg Tablet PO PRN (19:24)
[2022-10-05] MEDS ORDERED: Guaifenesin DM 100-10/5 ML UDCUP PO PRN (19:24)
[2022-10-05] MEDS ORDERED: Calcium Carbonate 500 MG ChewTAB PO PRN (19:24)
[2022-10-05] MEDS ORDERED: Glucagon 1 MG/ML KIT IM PRN (19:24)
[2022-10-05] MEDS ORDERED: Cyclobenzaprine 10 MG TAB PO PRN (19:27)
[2022-10-05] MEDS ORDERED: Morphine 2 MG/ML VIAL SLOW IVP PRN (19:29)
[2022-10-05] MEDS ORDERED: Ipratropium/Albuterol 3 ML NEB NEB PRN (19:46)
[2022-10-05] MEDS ORDERED: Vancomycin 1.5 GRAM/300 ML BAG 1.5 GM in Premix Bag 1 BAG IVPB SCH (21:00)
[2022-10-05] MEDS ORDERED: clonazePAM 0.5 MG TAB PO SCH (21:00)
[2022-10-05] MEDS ORDERED: Meropenem 500 MG in Sodium Chloride 0.9% 100 ML IVPB SCH (22:00)
[2022-10-05] MEDS: Atorvastatin Calcium 20 MG TAB PO SCH (23:24)
[2022-10-05] MEDS: Famotidine 20 MG TAB PO SCH (23:24)
[2022-10-05] MEDS: Ondansetron PF 4 MG/2 ML Vial IVP PRN (23:24)
[2022-10-05] MEDS: Sodium Chloride 0.9% 1,000 ML IV SCH (23:25)
[2022-10-05] MEDS: Gabapentin 300 MG CAP PO SCH (23:25)
[2022-10-06] MEDS ORDERED: Meropenem 1 GM in Sodium Chloride 0.9% 100 ML IVPB SCH (00:15)
[2022-10-06 04:44] LABS: #Basophils 0.1 10x3/uL (0.0-0.2); #Monocytes 2.7 10x3/uL (0.0-1.1); #Neutrophils 17.9 10x3/uL (1.5-8.4); %Basophils 0.2 % (0.0-2.0); %Lymphocytes 5.9 % (18.0-47.0); %Neutrophils 81.3 % (40.0-75.0); Hematocrit 38.3 % (38.8-50.0); Hemoglobin 12.5 g/dL (13.5-17.5); Mean Corpuscular HGB CONC 32.6 g/dL (32.0-36.0); Mean Corpuscular Hemoglobin 27.5 pg (27.0-33.0); Mean Corpuscular Volume 84.4 fl (81.2-95.1); Mean Platelet Volume 9.8 fl (7.4-10.4); Platelet Count 284 10x3/uL (150-450); RBC Distribution Width 15.7 % (11.5-14.5); Red Blood Cell (RBC) Count 4.54 10x6/uL (4.32-5.72)
[2022-10-06 05:16] LABS: Anion Gap 17 mmol/L (10-20); BUN (Urea Nitrogen) 21 mg/dL (8.4-25.7); Calc. Creatinine Clearance 80 mL/min (70-130); Calcium 8.2 mg/dL (7.8-10.44); Carbon Dioxide 24 mmol/L (23-31); Chloride 97 mmol/L (98-107); Estimated GFR 63; Glucose 96 mg/dL (80-115); Potassium 4.5 mmol/L (3.5-5.1); Sodium 133 mmol/L (136-145)
[2022-10-06] MEDS: Meropenem 1 GM in Sodium Chloride 0.9% 100 ML IVPB SCH ×2 (08:24→20:17)
[2022-10-06] MEDS: Magnesium Oxide 400 MG TAB PO SCH (08:25)
[2022-10-06] MEDS: Ferrous Sulfate 325 MG TAB PO SCH (08:25)
[2022-10-06] MEDS: Multivit, Therapeutic 1 TAB PO SCH (08:25)
[2022-10-06] MEDS: Alogliptin 6.25 MG TAB PO SCH (08:25)
[2022-10-06] MEDS: Saccharomyces boulardii 250 MG CAP PO SCH (08:26)
[2022-10-06] MEDS: Ondansetron PF 4 MG/2 ML Vial IVP PRN ×2 (08:34→20:18)
[2022-10-06] MEDS: Ipratropium Bromide 2.5 ml Neb NEB SCH ×3 (10:55→19:10)
[2022-10-06] MEDS: Mometasone/Formoterol 60 PUFF AER INH SCH ×2 (10:55→19:17)
[2022-10-06] MEDS: Sodium Chloride 0.9% 1,000 ML IV SCH (12:50)
[2022-10-06] MEDS ORDERED: dilTIAZem 125 MG, Admixture Fee 1 EACH in Sodium Chloride 0.9% 100 ML IVPB SCH ×3 (13:00→19:00)
[2022-10-06] MEDS ORDERED: Digoxin 0.5 MG/2 ML AMP SLOW IVP SCH (13:00)
[2022-10-06] MEDS ORDERED: Magnesium 2 GM/50 ML(in water) 2 GM in Premix Bag 1 BAG IVPB SCH (13:30)
[2022-10-06] MEDS ORDERED: Metoprolol Tartrate 5 MG/5 ML VIAL IVP SCH (14:37)
[2022-10-06] MEDS ORDERED: Sodium Chloride 0.9% 1,000 ML IV SCH (14:37)
[2022-10-06] MEDS ORDERED: Metoprolol Tartrate 25 MG TAB PO SCH ×2 (17:00→21:00)
[2022-10-06] MEDS: Famotidine 20 MG TAB PO SCH (20:15)
[2022-10-06] MEDS: Atorvastatin Calcium 20 MG TAB PO SCH (20:16)
[2022-10-06] MEDS: Gabapentin 300 MG CAP PO SCH (20:16)
[2022-10-06] MEDS: clonazePAM 1 MG TAB PO SCH (20:17)
[2022-10-06] MEDS: Metoprolol Tartrate 25 MG TAB PO SCH (23:51)
[2022-10-07] MEDS: Ipratropium Bromide 2.5 ml Neb NEB SCH ×4 (00:40→20:30)
[2022-10-07] MEDS: Meropenem 1 GM in Sodium Chloride 0.9% 100 ML IVPB SCH ×3 (05:52→21:01)
[2022-10-07] MEDS: Metoprolol Tartrate 25 MG TAB PO SCH ×4 (05:56→23:44)
[2022-10-07 06:17] LABS: #Eosinphils 0.1 10x3/uL (0.0-0.5); #Monocytes 1.6 10x3/uL (0.0-1.1); #Neutrophils 9.9 10x3/uL (1.5-8.4); %Basophils 0.2 % (0.0-2.0); %Eosinophils 0.6 % (0.0-6.0); %Lymphocytes 10.2 % (18.0-47.0); %Monocytes 12.1 % (0.0-10.0); %Neutrophils 76.3 % (40.0-75.0); Hematocrit 35.8 % (38.8-50.0); Hemoglobin 11.7 g/dL (13.5-17.5); Mean Corpuscular HGB CONC 32.7 g/dL (32.0-36.0); Mean Corpuscular Hemoglobin 26.7 pg (27.0-33.0); Mean Corpuscular Volume 81.7 fl (81.2-95.1); Mean Platelet Volume 9.2 fl (7.4-10.4); Platelet Count 296 10x3/uL (150-450); RBC Distribution Width 15.6 % (11.5-14.5); Red Blood Cell (RBC) Count 4.38 10x6/uL (4.32-5.72)
[2022-10-07] MEDS: Mometasone/Formoterol 60 PUFF AER INH SCH ×2 (06:20→20:40)
[2022-10-07 06:22] LABS: Anion Gap 14 mmol/L (10-20); BUN (Urea Nitrogen) 13 mg/dL (8.4-25.7); CRP (Inflammatory) 14.79 mg/dL (= or < 0.5); Calc. Creatinine Clearance 110 mL/min (70-130); Calcium 8.4 mg/dL (7.8-10.44); Carbon Dioxide 27 mmol/L (23-31); Chloride 98 mmol/L (98-107); Estimated GFR 92; Glucose 134 mg/dL (80-115); Potassium 3.6 mmol/L (3.5-5.1); Sodium 135 mmol/L (136-145)
[2022-10-07] MEDS ORDERED: Potassium Chloride 20 MEQ TAB PO SCH (09:15)
[2022-10-07 09:58] LABS: Magnesium 1.9 mg/dL (1.6-2.6)
[2022-10-07] MEDS: Alogliptin 6.25 MG TAB PO SCH (10:30)
[2022-10-07] MEDS: Ferrous Sulfate 325 MG TAB PO SCH (10:31)
[2022-10-07] MEDS: Multivit, Therapeutic 1 TAB PO SCH (10:31)
[2022-10-07] MEDS: Losartan Potassium 50 MG TAB PO SCH (10:31)
[2022-10-07] MEDS: Magnesium Oxide 400 MG TAB PO SCH (10:31)
[2022-10-07] MEDS: Saccharomyces boulardii 250 MG CAP PO SCH (10:31)
[2022-10-07] MEDS: Ondansetron PF 4 MG/2 ML Vial IVP PRN (13:46)
[2022-10-07] MEDS: clonazePAM 1 MG TAB PO SCH (20:06)
[2022-10-07] MEDS: Gabapentin 300 MG CAP PO SCH (20:06)
[2022-10-07] MEDS: Atorvastatin Calcium 20 MG TAB PO SCH (20:06)
[2022-10-08] MEDS: Ipratropium Bromide 2.5 ml Neb NEB SCH ×3 (02:15→14:16)
[2022-10-08 04:06] LABS: Anion Gap 15 mmol/L (10-20); BUN (Urea Nitrogen) 12 mg/dL (8.4-25.7); Calc. Creatinine Clearance 122 mL/min (70-130); Calcium 8.2 mg/dL (7.8-10.44); Carbon Dioxide 25 mmol/L (23-31); Chloride 97 mmol/L (98-107); Estimated GFR 96; Glucose 126 mg/dL (80-115); Magnesium 1.8 mg/dL (1.6-2.6); Sodium 133 mmol/L (136-145)
[2022-10-08 04:40] VITALS: BMI 29.5
[2022-10-08] MEDS: Meropenem 1 GM in Sodium Chloride 0.9% 100 ML IVPB SCH ×3 (06:07→14:58)
[2022-10-08] MEDS: Metoprolol Tartrate 25 MG TAB PO SCH ×2 (06:07→12:08)
[2022-10-08] MEDS ORDERED: Lidocaine 1% PF 5 ML VIAL ONE (08:46)
[2022-10-08] MEDS ORDERED: Sodium Bicarbonate 2.5 MEQ/5 ML VIAL ONE (08:47)
[2022-10-08] MEDS: Mometasone/Formoterol 60 PUFF AER INH SCH (08:50)
[2022-10-08] MEDS: Ferrous Sulfate 325 MG TAB PO SCH (09:18)
[2022-10-08] MEDS: Magnesium Oxide 400 MG TAB PO SCH (09:18)
[2022-10-08] MEDS: Multivit, Therapeutic 1 TAB PO SCH (09:18)
[2022-10-08] MEDS: Alogliptin 6.25 MG TAB PO SCH (09:18)
[2022-10-08] MEDS: Saccharomyces boulardii 250 MG CAP PO SCH (09:18)
[2022-10-08] MEDS: Losartan Potassium 50 MG TAB PO SCH (09:18)
[2022-10-08 15:44] VITALS: BP 133/86; TEMP 98.3
[2022-10-08] MEDS ORDERED: Ertapenem 1 GM in Sodium Chloride 0.9% 100 ML IVPB SCH (16:00)
[2022-10-08] MEDS ORDERED: Metoprolol Tartrate 50 MG TAB PO SCH (21:00)
== END 2022-10-08 17:02 | disposition home health service (06) | DRG 871 ==
LOC: CSHERS 13:57 → CSHTELE 22:48 → CSHICU 10-06 17:55
PROVIDERS: ADMIT Student in an Organized Health Care Education/Training Program; ATTEND Internal Medicine
PROC: 3E03329 Introduction of Other Anti-infective into Peripheral Vein, Percutaneous Approach (ICD-10-PCS; 2022-10-05)
PROC: 02HV33Z Insertion of Infusion Device into Superior Vena Cava, Percutaneous Approach (ICD-10-PCS; principal; 2022-10-08)
PROC: B5181ZA Fluoroscopy of Superior Vena Cava using Low Osmolar Contrast, Guidance (ICD-10-PCS; 2022-10-08)
PROC: B548ZZA Ultrasonography of Superior Vena Cava, Guidance (ICD-10-PCS; 2022-10-08)
DX: A41.51 Sepsis due to Escherichia coli [E. coli] (principal); J96.01 Acute respiratory failure with hypoxia; N10 Acute pyelonephritis; N17.9 Acute kidney failure, unspecified; E87.1 Hypo-osmolality and hyponatremia; Z16.24 Resistance to multiple antibiotics; E11.40 Type 2 diabetes mellitus with diabetic neuropathy, unspecified; K21.9 Gastro-esophageal reflux disease without esophagitis; E11.65 Type 2 diabetes mellitus with hyperglycemia; I25.119 Atherosclerotic heart disease of native coronary artery with unspecified angina pectoris; E78.2 Mixed hyperlipidemia; E11.59 Type 2 diabetes mellitus with other circulatory complications; G89.4 Chronic pain syndrome; I12.9 Hypertensive chronic kidney disease with stage 1 through stage 4 chronic kidney disease, or unspecified chronic kidney disease; E11.22 Type 2 diabetes mellitus with diabetic chronic kidney disease; N18.9 Chronic kidney disease, unspecified; I48.0 Paroxysmal atrial fibrillation; Z79.51 Long term (current) use of inhaled steroids; Z79.899 Other long term (current) drug therapy; Z90.49 Acquired absence of other specified parts of digestive tract; Z98.890 Other specified postprocedural states
CPT/HCPCS: 36415; 36416; 36569; 71275; 74176; 80048; 80053; 81001; 82553; 83605; 83735; 84484; 85025; 86140; 87040; 87077; 87086; 87186; 93005; 93010; 93306; 94640; 94664; 94760; 94762; C1751; J1160; J1335; J1650; J1815; J2185; J2270; J2272; J2405; J2543; J3370; J3475; J3490; J7050; Q9967

== ENCOUNTER 2024-03-20 12:49 | Inpatient (IN) | payer BC, MEDICARE ==
[2024-03-20] MEDS ORDERED: Ipratropium/Albuterol 3 ML NEB ONE (13:21)
[2024-03-20 13:36] LABS: #Basophils 0.06 10x3/uL (0.0-0.2); #Neutrophils 19.17 10x3/uL (1.5-8.4); %Basophils 0.3 % (0.0-2.0); %Eosinophils 0.5 % (0.0-6.0); %Lymphocytes 4.2 % (18.0-47.0); %Monocytes 6.4 % (0.0-10.0); %Neutrophils 88.1 % (40.0-75.0); Hematocrit 46.6 % (38.8-50.0); Hemoglobin 14.3 g/dL (13.5-17.5); Mean Corpuscular HGB CONC 30.7 g/dL (32.0-36.0); Mean Corpuscular Hemoglobin 26.9 pg (27.0-33.0); Mean Corpuscular Volume 87.6 fL (81.2-95.1); Mean Platelet Volume 8.8 fL (7.4-10.4); Platelet Count 364 10x3/uL (150-450); RBC Distribution Width 16.4 % (11.5-14.5); Red Blood Cell (RBC) Count 5.32 10x6/uL (4.32-5.72); White Blood Cell (WBC) Count 21.75 10x3/uL (3.5-10.5)
[2024-03-20 13:50] LABS: Anion Gap 16 mmol/L (10-20); BUN (Urea Nitrogen) 18 mg/dL (8.4-25.7); Calc. Creatinine Clearance 0 mL/min (70-130); Calcium 8.9 mg/dL (7.8-10.44); Carbon Dioxide 23 mmol/L (23-31); Chloride 100 mmol/L (98-107); Estimated GFR 41; Glucose 143 mg/dL (80-115); Potassium 5.4 mmol/L (3.5-5.1); Sodium 134 mmol/L (136-145)
[2024-03-20] MEDS ORDERED: LevoFLOXacin 750 mg/D5W 150 ml Premix Bag ONE (13:54)
[2024-03-20] MEDS ORDERED: clonazePAM 1 MG TAB PO PRN (15:20)
[2024-03-20] MEDS ORDERED: Cyclobenzaprine 10 MG TAB PO PRN (15:20)
[2024-03-20] MEDS ORDERED: Calcium Carbonate 500 MG ChewTAB PO PRN (15:21)
[2024-03-20] MEDS ORDERED: Senokot S 8.6-50 MG TAB PO PRN (15:21)
[2024-03-20] MEDS ORDERED: Ondansetron PF 4 MG/2 ML Vial IVP PRN (15:21)
[2024-03-20] MEDS ORDERED: Dextrose 50% Abboject 50 ML SYRINGE SLOW IVP PRN (15:25)
[2024-03-20] MEDS ORDERED: Dextrose 5% in Water 1,000 ML IV PRN (15:25)
[2024-03-20] MEDS ORDERED: Glucagon 1 MG/ML KIT IM PRN (15:25)
[2024-03-20 16:41] LABS: Legionella Urinary Ag Negative (Negative); Strep pneumo Urine Ag NEGATIVE (NEGATIVE)
[2024-03-20 16:43] LABS: Bilirubin Neg (Negative); Blood, Urine 150 (Negative); Glucose, Urine (Dipstick) Normal (Negative); Ketone, Urine Negative (Negative); Leukocyte Negative (Negative); Nitrite Negative (Negative); Protein, Urine (Dipstick) 30 mg/dl (Neg-Trace); Specific Gravity, Urine 1.015 (1.005-1.030); Urobilinogen Normal mg/dL (Less than 2)
[2024-03-20 16:45] LABS: Clarity Clear (Clear)
[2024-03-20 16:53] LABS: CAUTI Indications for Culture Dysuria,urgency,freq; WBC/HPF None Seen HPF (0-3)
[2024-03-20 16:54] LABS: Bacteria/HPF None Seen HPF (None Seen); Squamous Epithelial None Seen HPF (0-3); Urine Culture Reflex No No
[2024-03-20 18:03] VITALS: BMI 28.0
[2024-03-20] MEDS: cefTRIAXone\\ROCEPHIN 1 GM in Sodium Chloride 0.9% 100 ML IVPB SCH (18:37)
[2024-03-20] MEDS: Sodium Chloride 0.9% 1,000 ML IV SCH (18:38)
[2024-03-20] MEDS: Ipratropium Bromide 2.5 ml Neb NEB SCH (19:18)
[2024-03-20] MEDS: LOKELMA 10 GM PACKET PO SCH (19:32)
[2024-03-20] MEDS: Azithromycin 500 MG in Sodium Chloride 0.9% 250 ML 250 ML IVPB SCH (20:02)
[2024-03-20] MEDS: Apixaban 5 MG TAB PO SCH (20:03)
[2024-03-20] MEDS: guaiFENesin ER 600 MG TAB PO SCH (20:03)
[2024-03-20] MEDS: Atorvastatin Calcium 20 MG TAB PO SCH (20:04)
[2024-03-20] MEDS: Metoprolol Tartrate 50 MG TAB PO SCH (20:04)
[2024-03-20 20:27] LABS: Anion Gap 12 mmol/L (10-20); BUN (Urea Nitrogen) 16 mg/dL (8.4-25.7); Calc. Creatinine Clearance 65 mL/min (70-130); Carbon Dioxide 24 mmol/L (23-31); Chloride 105 mmol/L (98-107); Estimated GFR 50; Glucose 119 mg/dL (80-115); Sodium 136 mmol/L (136-145)
[2024-03-20] MEDS: Sodium Chloride 0.9% 500 ML IV SCH (20:38)
[2024-03-20] MEDS: Benzonatate 100 MG CAP PO PRN (22:47)
[2024-03-20] MEDS: Verapamil 120 MG TAB PO SCH (22:47)
[2024-03-20] MEDS: Gabapentin 300 MG CAP PO SCH (22:48)
[2024-03-20] MEDS: Acetaminophen 325 MG TAB PO PRN (22:48)
[2024-03-20] MEDS: Mometasone 200 MCG/Formoterol 5 MCG 60 PUFF INHALER INH SCH (23:45)
[2024-03-21 04:58] LABS: #Basophils 0.03 10x3/uL (0.0-0.2); #Eosinophils 0.17 10x3/uL (0.0-0.5); #Neutrophils 4.39 10x3/uL (1.5-8.4); %Basophils 0.4 % (0.0-2.0); %Eosinophils 2.5 % (0.0-6.0); %Lymphocytes 22.8 % (18.0-47.0); %Monocytes 10.2 % (0.0-10.0); %Neutrophils 63.7 % (40.0-75.0); Hematocrit 42.5 % (38.8-50.0); Hemoglobin 12.7 g/dL (13.5-17.5); Mean Corpuscular HGB CONC 29.9 g/dL (32.0-36.0); Mean Corpuscular Hemoglobin 26.5 pg (27.0-33.0); Mean Corpuscular Volume 88.7 fL (81.2-95.1); Mean Platelet Volume 9.6 fL (7.4-10.4); RBC Distribution Width 16.6 % (11.5-14.5); Red Blood Cell (RBC) Count 4.79 10x6/uL (4.32-5.72); White Blood Cell (WBC) Count 6.89 10x3/uL (3.5-10.5)
[2024-03-21 05:10] LABS: Platelet Count 268 10x3/uL (150-450)
[2024-03-21 05:14] LABS: ALT (SGPT) 36 U/L (8-55); AST (SGOT) 23 U/L (5-34); Albumin 2.7 g/dL (3.4-4.8); Alkaline Phosphatase 66 U/L (40-110); Anion Gap 14 mmol/L (10-20); BUN (Urea Nitrogen) 15 mg/dL (8.4-25.7); Bilirubin, Total 0.2 mg/dL (0.2-1.2); Calc. Creatinine Clearance 74 mL/min (70-130); Calcium 8.1 mg/dL (7.8-10.44); Carbon Dioxide 21 mmol/L (23-31); Chloride 107 mmol/L (98-107); Estimated GFR 58; Globulin 3.8 g/dL (2.4-3.5); Glucose 81 mg/dL (80-115); Magnesium 1.8 mg/dL (1.6-2.6); Potassium 5.3 mmol/L (3.5-5.1); Protein, Total 6.5 g/dL (5.8-8.1); Sodium 137 mmol/L (136-145)
[2024-03-21] MEDS: Ipratropium/Albuterol 3 ML NEB NEB PRN (06:15)
[2024-03-21] MEDS: Mometasone 200 MCG/Formoterol 5 MCG 60 PUFF INHALER INH SCH (07:28)
[2024-03-21] MEDS: Carvedilol 6.25 MG TAB PO SCH (09:18)
[2024-03-21] MEDS: Pantoprazole 40 MG DR.TAB PO SCH (09:18)
[2024-03-21] MEDS: Verapamil 120 MG TAB PO SCH (09:18)
[2024-03-21] MEDS: Flecainide 50 MG TAB PO SCH (09:18)
[2024-03-21] MEDS: Gabapentin 300 MG CAP PO SCH ×2 (09:19→20:26)
[2024-03-21] MEDS: Alogliptin 6.25 MG TAB PO SCH (09:19)
[2024-03-21] MEDS: Sodium Chloride 0.9% 1,000 ML IV SCH (14:06)
[2024-03-22 05:26] LABS: #Basophils 0.04 10x3/uL (0.0-0.2); #Eosinophils 0.04 10x3/uL (0.0-0.5); #Monocytes 1.48 10x3/uL (0.0-1.1); #Neutrophils 5.73 10x3/uL (1.5-8.4); %Basophils 0.5 % (0.0-2.0); %Eosinophils 0.5 % (0.0-6.0); %Lymphocytes 15.9 % (18.0-47.0); %Neutrophils 65.6 % (40.0-75.0); Hematocrit 38.9 % (38.8-50.0); Hemoglobin 12.6 g/dL (13.5-17.5); Mean Corpuscular HGB CONC 32.4 g/dL (32.0-36.0); Mean Corpuscular Hemoglobin 27.8 pg (27.0-33.0); Mean Corpuscular Volume 85.7 fL (81.2-95.1); Mean Platelet Volume 8.9 fL (7.4-10.4); Platelet Count 331 10x3/uL (150-450); RBC Distribution Width 16.4 % (11.5-14.5); Red Blood Cell (RBC) Count 4.54 10x6/uL (4.32-5.72); White Blood Cell (WBC) Count 8.72 10x3/uL (3.5-10.5)
[2024-03-22 05:45] LABS: Anion Gap 13 mmol/L (10-20); BUN (Urea Nitrogen) 9 mg/dL (8.4-25.7); Calc. Creatinine Clearance 81 mL/min (70-130); Calcium 8.4 mg/dL (7.8-10.44); Carbon Dioxide 25 mmol/L (23-31); Chloride 103 mmol/L (98-107); Estimated GFR 65; Glucose 96 mg/dL (80-115); Magnesium 1.4 mg/dL (1.6-2.6); Potassium 4.5 mmol/L (3.5-5.1); Sodium 136 mmol/L (136-145)
[2024-03-22] MEDS: Azithromycin 500 MG in Sodium Chloride 0.9% 250 ML 250 ML IVPB SCH (08:27)
[2024-03-22] MEDS: methylPREDNISolone Sod Succ/PF 125 MG/2 ML VIAL IVP SCH (08:27)
[2024-03-22] MEDS: Magnesium 2 GM/50 ML(in water) 2 GM in Premix 1 BAG IVPB SCH (09:44)
[2024-03-22] MEDS: cefTRIAXone\\ROCEPHIN 1 GM in Sodium Chloride 0.9% 100 ML IVPB SCH (12:54)
[2024-03-22] MEDS: Insulin Lispro 100 UNIT/ML 10 ML VIAL SC PRN (22:20)
[2024-03-23 05:06] LABS: #Basophils Less than 0.03 10x3/uL (0.0-0.2); #Eosinophils Less than 0.03 10x3/uL (0.0-0.5); #Monocytes 0.84 10x3/uL (0.0-1.1); #Neutrophils 3.42 10x3/uL (1.5-8.4); %Lymphocytes 19.2 % (18.0-47.0); %Monocytes 15.8 % (0.0-10.0); %Neutrophils 64.6 % (40.0-75.0); Hematocrit 39.1 % (38.8-50.0); Hemoglobin 12.9 g/dL (13.5-17.5); Mean Corpuscular Hemoglobin 27.7 pg (27.0-33.0); Mean Corpuscular Volume 83.9 fL (81.2-95.1); Mean Platelet Volume 9.3 fL (7.4-10.4); Platelet Count 404 10x3/uL (150-450); RBC Distribution Width 16.1 % (11.5-14.5); Red Blood Cell (RBC) Count 4.66 10x6/uL (4.32-5.72)
[2024-03-23 05:30] LABS: Anion Gap 12 mmol/L (10-20); BUN (Urea Nitrogen) 14 mg/dL (8.4-25.7); Calc. Creatinine Clearance 91 mL/min (70-130); Calcium 9.4 mg/dL (7.8-10.44); Carbon Dioxide 28 mmol/L (23-31); Chloride 102 mmol/L (98-107); Estimated GFR 75; Glucose 160 mg/dL (80-115); Magnesium 1.7 mg/dL (1.6-2.6); Sodium 137 mmol/L (136-145)
[2024-03-23] MEDS: Insulin Lispro 100 UNIT/ML 10 ML VIAL SC PRN (06:35)
[2024-03-23] MEDS: methylPREDNISolone Sod Succ/PF 125 MG/2 ML VIAL IVP SCH (09:05)
[2024-03-23] MEDS: Magnesium 2 GM/50 ML(in water) 2 GM in Premix 1 BAG IVPB SCH (09:06)
[2024-03-23 12:26] VITALS: BP 161/80; TEMP 98.7
== END 2024-03-23 13:30 | disposition home or self-care (01) | DRG 871 ==
LOC: SUATTDRO 12:49 → CSHERS 12:49 → CSHTELE 17:01
PROVIDERS: ADMIT Internal Medicine; ATTEND Internal Medicine
DX: A41.9 Sepsis, unspecified organism (principal); J18.9 Pneumonia, unspecified organism; N17.9 Acute kidney failure, unspecified; I12.9 Hypertensive chronic kidney disease with stage 1 through stage 4 chronic kidney disease, or unspecified chronic kidney disease; E11.22 Type 2 diabetes mellitus with diabetic chronic kidney disease; E78.5 Hyperlipidemia, unspecified; E87.6 Hypokalemia; I48.0 Paroxysmal atrial fibrillation; J45.909 Unspecified asthma, uncomplicated; N18.9 Chronic kidney disease, unspecified; Z90.49 Acquired absence of other specified parts of digestive tract; Z90.89 Acquired absence of other organs
CPT/HCPCS: 36415; 36416; 71045; 71046; 80048; 80053; 81001; 83605; 83735; 84145; 85025; 87040; 87070; 87205; 87449; 87899; 93005; 94640; 94664; 94760; 96361; 96365; J0456; J0696; J1815; J1956; J2919; J3475; J7030; J7050; J7620; J7644